=== PATIENT | female | born 1930 | race Caucasian/White ===

== ENCOUNTER 2017-02-03 11:00 | Outpatient (CLI) | payer BC | END 2017-02-03 11:01 | disposition home or self-care (01) | DX: N30.01 Acute cystitis with hematuria (principal) ==

== ENCOUNTER 2017-02-05 12:13 | Emergency (ER) | payer BC ==
[2017-02-05 12:27] VITALS: BP 158/67
[2017-02-05 12:43] LABS: BILIRUBIN,URINE NEGATIVE (NEGATIVE)
[2017-02-05 12:44] LABS: UA w/ MICROSCOPIC CHARGE YES
--- NOTE | 2017-02-05 12:51 | ED Physician Documentation ---
PD HPI FEMALE - Stated complaint Stated Complaint: FEMALE /BACK PX - Chief complaint Chief Complaint: UTI - History obtained from History obtained from: Patient, Family (daughter) - History of Present Illness Timing - onset: Other (About 3 days worth of urinary frequency and burning dysuria without new back pain (she has chronic back pain), nor does she have nausea, fevers, or chills. She said she saw her doctor for same a week ago, but I think she may be a little confused about that because there is a urine culture on the chart from 2 days ago that was just resulted this morning showing Proteus mirabilis which was resistant to tetracycline and nitrofurantoin. Of note she has multiple antibiotics allergies including all beta lactams.) Review of Systems Constitutional: denies: Fever, Chills Cardiac: denies: Chest pain / pressure, Palpitations Respiratory: denies: Dyspnea, Cough GI: denies: Abdominal Pain, Nausea, Vomiting : reports: Dysuria, Frequency, Hesitancy. denies: Hematuria PD PAST MEDICAL HISTORY - Past Medical History Neuro: Head injury GI: GERD, Hiatal hernia, Ulcerative colitis OIL SPREADER OPERATOR: None : None Psych: None Musculoskeletal: None - Past Surgical History Past Surgical History: Yes /OIL SPREADER OPERATOR: Hysterectomy - Present Medications Home Medications: Ambulatory Orders Medication Instructions Recorded Confirmed Ranitidine HCl [Zantac] 1 tab DAILY 10/26/14 02/05/17 Phenazopyridine HCl [Pyridium] 200 mg PO TID #6 tablet 02/05/17 Sulfamethoxazole/Trimethoprim 1 each PO BID 5 Days 02/05/17 [Sulfamethoxazole-Tmp Ds Tablet] - Allergies Allergies/Adverse Reactions: Allergies Allergy/AdvReac Type Severity Reaction Status Date / Time bacitracin Allergy Unknown Verified 02/05/17 12:28 [From Neosporin ([id number])] bacitracin zinc * Allergy Unknown Verified 02/05/17 12:28 [From Neosporin ([id number])] Cephalosporins Allergy Unknown Verified 02/05/17 12:28 naproxen [From Naprosyn] Allergy Unknown Verified 02/05/17 12:28 neomycin sulfate * Allergy Unknown Verified 02/05/17 12:28 [From Neosporin ([id number]-[id number])] Penicillins Allergy Unknown Verified 02/05/17 12:28 polymyxin B Allergy Unknown Verified 02/05/17 12:28 [From Neosporin ([id number])] shellfish derived Allergy Unknown Verified 02/05/17 12:28 beta-lactams Allergy Unknown Uncoded 02/05/17 12:28 chloretrimazole Allergy Unknown Uncoded 02/05/17 12:28 msg Allergy Unknown Uncoded 02/05/17 12:28 - Social History Does the pt smoke?: No Smoking Status: Never smoker Does the pt drink ETOH?: No Does the pt have substance abuse?: No - Immunizations Immunizations are current?: No Immunizations: TDAP >10years/unknown, Other immun not current PD ED PE NORMAL - Vitals Vital signs reviewed: Yes - General General: No acute distress, Well developed/nourished - Abdomen Abdomen: Normal bowel sounds, Soft, Non tender - Back Back: No CVA TTP, No spinal TTP - Extremities Extremities: No edema, No calf tenderness / cord - Neuro Neuro: Normal speech - Psych Psych: Normal mood, Normal affect Results - Vitals Vitals: Vital Signs - 24 hr 02/05/17 12:18 Temperature 37.1 C Heart Rate 61 Respiratory 20 Rate Blood Pressure 158/67 H O2 Saturation 97 Oxygen O2 Source Room air - Labs Labs: Laboratory Tests 02/05/17 12:38 Urine Color YELLOW Urine Clarity SL. CLOUDY Urine pH 7.0 Ur Specific [place] <=1.005 Urine Protein NEGATIVE Urine Glucose (UA) NEGATIVE Urine Ketones NEGATIVE Urine Occult Blood LARGE H Urine Nitrite NEGATIVE Urine Bilirubin NEGATIVE Urine Urobilinogen 0.2 (NORMAL) Ur Leukocyte Esterase MODERATE H Ur Microscopic Review INDICATED Urine Culture Comments Not Reportable Departure - Departure Disposition: 01 Home, Self Care Clinical Impression: Cystitis Condition: Good Record reviewed to determine appropriate education?: Yes Instructions: ED UTI Cystitis Female Prescriptions: Phenazopyridine HCl [Pyridium] 200 mg PO TID #6 tablet Sulfamethoxazole/Trimethoprim [Sulfamethoxazole-Tmp Ds Tablet] 1 each PO BID 5 Days Comments: Call your doctor to arrange a follow up appointment. Make the next available appointment. In the interim return anytime if worse or if new symptoms develop. Your blood pressure was elevated today on check in to the emergency department. This does not mean that you have hypertension, it is a common phenomenon to check into the emergency department and have elevated blood pressure. I recommend that you see your primary care physician within the week to have it rechecked when you're feeling better. As we discussed we will culture your urine, this results should be done in 48- 72 hours. If an antibiotic change is necessary we will call you. Return if worse in the meantime, especially if you develop flank pain or fevers or cannot keep down the medication.
[2017-02-05 12:53] LABS: WBC,URINE >25 /HPF (0-5)
[2017-02-05 12:54] LABS: UR CULTURE IF IND INDICATED
[2017-02-05] MEDS ORDERED: SULFAMETH/TRIMETH DS 800/160 MG TABLET PO ONE (13:00)
[2017-02-05] MEDS ORDERED: PHENAZOPYRIDINE 100 MG TABLET PO ONE (13:00)
[2017-02-05] MEDS: SULFAMETH/TRIMETH DS 800/160 MG TABLET PO STA (13:05)
[2017-02-05] MEDS: PHENAZOPYRIDINE 100 MG TABLET PO STA (13:05)
== END 2017-02-05 13:10 | disposition home or self-care (01) ==
LOC: ED 12:13
DX: N30.00 Acute cystitis without hematuria (principal); K21.9 Gastro-esophageal reflux disease without esophagitis; Z87.19 Personal history of other diseases of the digestive system; R03.0 Elevated blood-pressure reading, without diagnosis of hypertension
CPT/HCPCS: 81001; 81003; 87086; 99283

== ENCOUNTER 2017-02-16 11:47 | Emergency (ER) | payer BC ==
--- NOTE | 2017-02-16 12:47 | ED Physician Documentation ---
PD HPI FEMALE - Stated complaint Stated Complaint: FEMALE - Chief complaint Chief Complaint: UTI - History obtained from History obtained from: Patient - History of Present Illness Timing - onset: How many days ago (few days of worsening dysuria and vaginal "burning" feeling. Has had the dysuria about 3 weeks ago and had UTI with culture showing Proteus. She says symptoms improved and then seen by PMD days later or so (she does not remember exact date) and had pelvic with Dx yeast vaginitis, Rx with single dose diflucan. Patient says did not really improve and has worsened the past few days.) Timing - details: Gradual onset, Still present Associated symptoms: Vaginal pain, Dysuria. No: Abdominal pain, Back pain, Vaginal discharge, Genital sore/lesion Contributing factors: No: Exposed to STD Recently seen: Clinic, Emergency Dept (see above) Review of Systems Constitutional: denies: Fever, Chills Throat: denies: Sore throat Cardiac: denies: Chest pain / pressure, Palpitations, Calf pain Respiratory: denies: Dyspnea, Cough, Wheezing GI: denies: Nausea, Vomiting, Diarrhea : reports: Dysuria, Frequency. denies: Discharge Skin: denies: Rash Neurologic: reports: Generalized weakness. denies: Focal weakness, Numbness PD PAST MEDICAL HISTORY - Past Medical History Neuro: Head injury GI: GERD, Hiatal hernia, Ulcerative colitis STOPPER SETTER: None : None Psych: None Musculoskeletal: None - Past Surgical History Past Surgical History: Yes /STOPPER SETTER: Hysterectomy - Present Medications Home Medications: Ambulatory Orders Medication Instructions Recorded Confirmed Ranitidine HCl [Zantac] 1 tab DAILY 10/26/14 02/05/17 Phenazopyridine HCl [Pyridium] 200 mg PO TID #6 tablet 02/05/17 metroNIDAZOLE [Flagyl] 250 mg PO TID #20 tablet 02/16/17 - Allergies Allergies/Adverse Reactions: Allergies Allergy/AdvReac Type Severity Reaction Status Date / Time bacitracin Allergy Unknown Verified 02/05/17 12:28 [From Neosporin ([id number])] bacitracin zinc * Allergy Unknown Verified 02/05/17 12:28 [From Neosporin ([id number]-[id number])] Cephalosporins Allergy Unknown Verified 02/05/17 12:28 naproxen [From Naprosyn] Allergy Unknown Verified 02/05/17 12:28 neomycin sulfate * Allergy Unknown Verified 02/05/17 12:28 [From Neosporin ([id number])] Penicillins Allergy Unknown Verified 02/05/17 12:28 polymyxin B Allergy Unknown Verified 02/05/17 12:28 [From Neosporin ([id number]-[id number]-[id number])] shellfish derived Allergy Unknown Verified 02/05/17 12:28 beta-lactams Allergy Unknown Uncoded 02/05/17 12:28 chloretrimazole Allergy Unknown Uncoded 02/05/17 12:28 msg Allergy Unknown Uncoded 02/05/17 12:28 - Social History Does the pt smoke?: No Smoking Status: Never smoker Does the pt drink ETOH?: No Does the pt have substance abuse?: No - Immunizations Immunizations are current?: No Immunizations: TDAP >10years/unknown, Other immun not current PD ED PE NORMAL - Vitals Vital signs reviewed: Yes - General General: Alert and oriented X 3, No acute distress, Well developed/nourished - Cardiac Cardiac: RRR, No murmur - Respiratory Respiratory: Clear bilaterally - Abdomen Abdomen: Normal bowel sounds, Soft, Non tender, Non distended, No organomegaly - Female Female : Job Site Supervisor 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 Does not appear dry. External genitalia normal. ) - Back Back: No CVA TTP - Derm Derm: Normal color, Warm and dry Results - Vitals Vitals: Vital Signs - 24 hr 02/16/17 02/16/17 02/16/17 11:49 15:30 15:34 Temperature 36.9 C 36.4 C L 36.6 C Heart Rate 84 86 81 Respiratory 16 12 16 Rate Blood Pressure 158/71 H 138/64 H 129/73 O2 Saturation 97 97 98 Oxygen O2 Source Room air - Labs Labs: Microbiology 02/16/17 15:04 Wet Prep - Final Vaginal Laboratory Tests 02/16/17 12:55 Urine Color YELLOW Urine Clarity CLEAR Urine pH 5.5 Ur Specific [place] 1.025 Urine Protein NEGATIVE Urine Glucose (UA) NEGATIVE Urine Ketones NEGATIVE Urine Occult Blood SMALL H Urine Nitrite NEGATIVE Urine Bilirubin NEGATIVE Urine Urobilinogen 0.2 (NORMAL) Ur Leukocyte Esterase NEGATIVE Urine RBC 0-5 Urine WBC 4-5 Ur Squamous Epith Cells RARE Squamous Urine Bacteria Few Ur Microscopic Review INDICATED Urine Culture Comments NOT INDICATED PD MEDICAL DECISION MAKING - ED course Complexity details: considered differential (was having vaginal/urethral symptoms and had been treated for UTI recently and then diflucan for possible yeast infection (dx by pelvic exam by PMD). However, no labs done per se. Still with symptoms. Pelvic showing mild discharge and wet prep has some clue cells.) , d/w patient Departure - Departure Disposition: 01 Home, Self Care Clinical Impression: Bacterial vaginitis Condition: Stable Record reviewed to determine appropriate education?: Yes Instructions: ED Vaginosis Bacterial Follow-Up: Jaleel Brown MD [Primary Care Provider] - Prescriptions: metroNIDAZOLE [Flagyl] 250 mg PO TID #20 tablet Comments: There is signs of a vaginal infection on the swab test we did, but it appears bacterial and not yeast. Take metronidazole as directed for a week. Drink lots of fluids. Follow up PMD in about 10 days. Discharge Date/Time: 02/16/17 15:34
[2017-02-16 13:06] LABS: BILIRUBIN,URINE NEGATIVE (NEGATIVE); PH,URINE 5.5 PH (5.0-7.5)
[2017-02-16 13:08] LABS: UA w/ MICROSCOPIC CHARGE YES
[2017-02-16 13:20] LABS: UR CULTURE IF IND NOT INDICATED
[2017-02-16] MEDS ORDERED: metroNIDAZOLE 250 MG TABLET PO ONE (15:27)
[2017-02-16] MEDS: metroNIDAZOLE 250 MG TABLET PO STA (15:29)
[2017-02-16 15:35] VITALS: BP 129/73
== END 2017-02-16 15:34 | disposition home or self-care (01) ==
LOC: ED 11:47
DX: N76.0 Acute vaginitis (principal); B96.89 Other specified bacterial agents as the cause of diseases classified elsewhere
CPT/HCPCS: 81001; 81003; 87086; 87210; 99283

== ENCOUNTER 2017-03-04 13:07 | Emergency (ER) | payer BC ==
[2017-03-04 13:13] VITALS: BP 192/90
[2017-03-04 13:45] LABS: BILIRUBIN,URINE NEGATIVE (NEGATIVE); PH,URINE 6.5 PH (5.0-7.5)
[2017-03-04 13:46] LABS: UA CHARGE (STRIP ONLY) YES; UR CULTURE IF IND NOT INDICATED
[2017-03-04] MEDS ORDERED: LIDOCAINE JELLY 2% 5 ML TUBE TOP ONE (14:15)
--- NOTE | 2017-03-04 14:36 | ED Physician Documentation ---
History of Present Illness - Stated complaint Stated Complaint: FEMALE - Chief complaint Chief Complaint: Abd Pain - Additonal information Additional information: 86 f to ER with vaginal pain per pt she has had pain for a week since a speculum exam at PMD per EMR she has been seen by PMD and txed for UTI and then yeast and then came to the ER and was treated for BV no fever or abd pain or dysuria Review of Systems Constitutional: denies: Fever GI: denies: Abdominal Pain : reports: Other (vag pain). 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: None : None Psych: None Musculoskeletal: None - Past Surgical History Past Surgical History: Yes /FRICTION SAW OPERATOR: Hysterectomy - Allergies Allergies/Adverse Reactions: Allergies Allergy/AdvReac Type Severity Reaction Status Date / Time bacitracin Allergy Unknown Verified 03/04/17 13:13 [From Neosporin ([id number])] bacitracin zinc * Allergy Unknown Verified 03/04/17 13:13 [From Neosporin ([id number]-ife-[id number])] Cephalosporins Allergy Unknown Verified 03/04/17 13:13 naproxen [From Naprosyn] Allergy Unknown Verified 03/04/17 13:13 neomycin sulfate * Allergy Unknown Verified 03/04/17 13:13 [From Neosporin ([id number]-[id number])] Penicillins Allergy Unknown Verified 03/04/17 13:13 polymyxin B Allergy Unknown Verified 03/04/17 13:13 [From Neosporin ([id number])] shellfish derived Allergy Unknown Verified 03/04/17 13:13 beta-lactams Allergy Unknown Uncoded 03/04/17 13:13 chloretrimazole Allergy Unknown Uncoded 03/04/17 13:13 msg Allergy Unknown Uncoded 03/04/17 13:13 - Social History Does the pt smoke?: No Smoking Status: Never smoker Does the pt drink ETOH?: No Does the pt have substance abuse?: No - Immunizations Immunizations are current?: No Immunizations: TDAP >10years/unknown, Other immun not current PD ED PE NORMAL - Vitals Vital signs reviewed: Yes - Cardiac Cardiac: RRR - Respiratory Respiratory: No respiratory distress, Clear bilaterally - Abdomen Abdomen: Soft, Non tender - Female Female : Gandy Dancer present (Rosina), Other (erythema to vaginal mucosa, no dc , no bleeding, no tearing or bruising, no sattelite lesions, no vesicles, small urethral prolapse (pt advised)) Results - Vitals Vitals: Vital Signs - 24 hr 03/04/17 13:10 Temperature 36.6 C Heart Rate 97 Respiratory 18 Rate Blood Pressure 192/90 H O2 Saturation 97 Oxygen O2 Source Room air - Labs Labs: Laboratory Tests 03/04/17 13:35 Urine Color YELLOW Urine Clarity CLEAR Urine pH 6.5 Ur Specific [place] 1.020 Urine Protein NEGATIVE Urine Glucose (UA) NEGATIVE Urine Ketones NEGATIVE Urine Occult Blood NEGATIVE Urine Nitrite NEGATIVE Urine Bilirubin NEGATIVE Urine Urobilinogen 0.2 (NORMAL) Ur Leukocyte Esterase NEGATIVE Ur Microscopic Review NOT INDICATED Urine Culture Comments NOT INDICATED PD MEDICAL DECISION MAKING - ED course ED course: appears to have vag mucosa inflammation already been txed with ab x 2 and diflucan will just tx symptomatically and refer to FRICTION SAW OPERATOR if not better Departure - Departure Disposition: 01 Home, Self Care Clinical Impression: Vaginal irritation Condition: Good Follow-Up: Ethan Smith MD [Provider Admit Priv/Credential] - (for further evaluation if not better in a week) Comments: The vaginal mucosa looks red and inflamed. Per your medical record you have already been treated for a UTI, yeast infection , and bacterial vaginitis So I do not think more antibiotics or yeast medications are needed. You can apply a small amount of the lidocaine gel left over from todays visit every 6 hours as needed. Just clean with warm water and avoid trying different soaps and lotions etc. Follow up with the FRICTION SAW OPERATOR specialist if not better Also please follow up with your PMD to recheck your blood pressure
== END 2017-03-04 14:42 | disposition home or self-care (01) ==
LOC: ED 13:07
DX: N89.8 Other specified noninflammatory disorders of vagina (principal); K21.9 Gastro-esophageal reflux disease without esophagitis
CPT/HCPCS: 81003; 99283; J3490; 81001; 87086

== ENCOUNTER 2017-08-12 16:59 | Outpatient (CLI) | payer BC ==
[2017-08-12 17:19] LABS: BASOPHILS # (AUTO) 0.1 10^3/uL (0.0-0.1); BASOPHILS % (AUTO) 1.1 %; EOSINOPHILS # (AUTO) 0.1 10^3/uL (0.0-0.7); EOSINOPHILS % (AUTO) 0.7 %; HCT - HEMATOCRIT 42.8 % (37.0-47.0); HGB - HEMOGLOBIN 14.4 g/dL (12.0-16.0); LYMPHOCYTES # (AUTO) 3.6 10^3/uL (1.5-3.5); LYMPHOCYTES % (AUTO) 28.5 %; MEAN CORPUSCULAR HEMOGLOBIN 31.1 pg (27.0-31.0); MEAN CORPUSCULAR HGB CONC 33.5 g/dL (32.0-36.0); MEAN CORPUSCULAR VOLUME 92.7 fL (81.0-99.0); MONOCYTES # (AUTO) 0.8 10^3/uL (0.0-1.0); MONOCYTES % (AUTO) 6.2 %; NEUTROPHILS # (AUTO) 7.9 10^3/uL (1.5-6.6); NEUTROPHILS % (AUTO) 63.5 %; NUCLEATED RED BLOOD CELLS AUTO 0.1 /100WBC; RED BLOOD COUNT 4.62 10^6/uL (4.20-5.40); RED CELL DISTRIBUTION WIDTH 12.5 % (12.0-15.0); UNCORRECTED WHITE BLOOD COUNT 12.5 x10^3/uL; WHITE BLOOD COUNT 12.5 x10^3/uL (4.8-10.8)
[2017-08-12 17:48] LABS: ALBUMIN/GLOBULIN RATIO 1.5 (1.0-2.2); BILIRUBIN,TOTAL 0.3 mg/dL (0.2-1.0); CALCIUM 9.6 mg/dL (8.5-10.3); CREATININE 0.7 mg/dL (0.4-1.0); POTASSIUM 4.1 mmol/L (3.5-5.0); TOTAL PROTEIN 7.9 g/dL (6.7-8.2)
[2017-08-12 18:22] LABS: THYROID STIMULATING HORMONE 2.6 uIU/mL (0.34-5.60)
[2017-08-13 10:07] LABS: TEST RESULT REPORT
== END 2017-08-12 17:00 | disposition home or self-care (01) ==
LOC: LAB 16:59
PROVIDERS: ATTEND Internal Medicine
DX: R41.89 Other symptoms and signs involving cognitive functions and awareness (principal)
CPT/HCPCS: 36415; 80053; 81599; 82607; 84443; 85025; 86592

== ENCOUNTER 2018-05-24 18:50 | Emergency (ER) | payer BC ==
--- NOTE | 2018-05-24 19:31 | ED Physician Documentation ---
PD HPI WOUND RECHECK - Stated complaint Stated Complaint: R ANKLE PX - Chief complaint Chief Complaint: Ext Problem - Histroy obtained from History obtained from: Patient, Family - History of Present Illness Location: Other (R anterior ankle) Timing - onset: How many months ago (1) Pain level max: 1 Pain level now: 1 Associated symptoms: No: Fever, Redness, Swelling, Drainage Recently seen: Not recently seen - Additional information Additional information: scraped her R ankle on patio furniture 1 month ago. concerned about possible infection. Review of Systems Ten Systems: 10 systems reviewed and negative Constitutional: denies: Fever, Chills Ears: denies: Ear pain Nose: denies: Rhinorrhea / runny nose, Congestion Throat: denies: Sore throat Cardiac: denies: Chest pain / pressure Musculoskeletal: denies: Neck pain, Back pain Neurologic: denies: Headache PD PAST MEDICAL HISTORY - Past Medical History Past Medical History: Yes GI: GERD, Hiatal hernia, Ulcerative colitis INFORMATION ASSURANCE OFFICER: None : None Psych: None Musculoskeletal: None - Past Surgical History Past Surgical History: Yes /INFORMATION ASSURANCE OFFICER: Hysterectomy - Present Medications Home Medications: Ambulatory Orders Medication Instructions Recorded Confirmed No Known Home Medications [No 05/24/18 05/24/18 Known Home Medications] - Allergies Allergies/Adverse Reactions: Allergies Allergy/AdvReac Type Severity Reaction Status Date / Time bacitracin Allergy Unknown Verified 05/24/18 19:02 [From Neosporin ([id number]-[id number])] bacitracin zinc * Allergy Unknown Verified 05/24/18 19:02 [From Neosporin ([id number]-[id number])] Cephalosporins Allergy Unknown Verified 05/24/18 19:02 naproxen [From Naprosyn] Allergy Unknown Verified 05/24/18 19:02 neomycin sulfate * Allergy Unknown Verified 05/24/18 19:02 [From Neosporin ([id number]-kfd-cdarg)] Penicillins Allergy Unknown Verified 05/24/18 19:02 polymyxin B Allergy Unknown Verified 05/24/18 19:02 [From Neosporin ([id number])] shellfish derived Allergy Unknown Verified 05/24/18 19:02 beta-lactams Allergy Unknown Uncoded 03/04/17 13:13 chloretrimazole Allergy Unknown Uncoded 03/04/17 13:13 msg Allergy Unknown Uncoded 03/04/17 13:13 - Living Situation Living Situation: reports: With family Living Arrangement: reports: At home - Social History Does the pt smoke?: No Smoking Status: Never smoker Does the pt drink ETOH?: No Does the pt have substance abuse?: No - Immunizations Immunizations are current?: No Immunizations: TDAP >10years/unknown, Other immun not current PD ED PE NORMAL - Vitals Vital signs reviewed: Yes - General General: Alert and oriented X 3, No acute distress - Derm Derm: Warm and dry - Extremities Extremities: Other (R ankle - 0.5cm healing wound. granulation tissue present. NVI. no drainage. no surrounding erythema. ) - Neuro Neuro: Alert and oriented X 3 - Psych Psych: Normal mood Results - Vitals Vitals: Vital Signs - 24 hr 05/24/18 05/24/18 18:58 19:34 Temperature 36 C L 36.7 C Heart Rate 100 76 Respiratory 18 17 Rate Blood Pressure 149/83 H 126/78 O2 Saturation 95 99 Oxygen O2 Source Room air PD MEDICAL DECISION MAKING - ED course Complexity details: considered differential, d/w patient ED course: Patient is an 88-year-old female who presents to the emergency department with a healing wound to the anterior aspect of the right ankle. No evidence of infection. Will continue supportive care and follow-up closely with her doctor. Patient counseled regarding signs and symptoms for which I believe and urgent re-evaluation would be necessary. Patient with good understanding of and agreement to plan and is comfortable going home at this time This document was made in part using voice recognition software. While efforts are made to proofread this document, sound alike and grammatical errors may occur. - Sepsis Event Vital Signs: Vital Signs - 24 hr 05/24/18 05/24/18 18:58 19:34 Temperature 36 C L 36.7 C Heart Rate 100 76 Respiratory 18 17 Rate Blood Pressure 149/83 H 126/78 O2 Saturation 95 99 Oxygen O2 Source Room air Departure - Departure Disposition: 01 Home, Self Care Clinical Impression: Visit for wound check Condition: Good Instructions: ED Wound Care Follow-Up: Jaleel Brown MD [Primary Care Provider] - Within 1 week (for wound recheck) Comments: There are no signs of infection tonight. Your wound appears to be healing well. Return if you worsen. Discharge Date/Time: 05/24/18 19:34
[2018-05-24 19:36] VITALS: BP 126/78
== END 2018-05-24 19:34 | disposition home or self-care (01) ==
LOC: ED 18:50
DX: M25.571 Pain in right ankle and joints of right foot (principal); S90.911D Unspecified superficial injury of right ankle, subsequent encounter; W19.XXXD Unspecified fall, subsequent encounter
CPT/HCPCS: 99282; 99283

== ENCOUNTER 2019-04-05 09:46 | Emergency (ER) | payer BC ==
[2019-04-05 10:47] LABS: BILIRUBIN,URINE NEGATIVE (NEGATIVE); GLUCOSE, URINE (UA) NEGATIVE (NEGATIVE); KETONES,URINE (UA) NEGATIVE (NEGATIVE); LEUKOCYTE ESTERASE, URINE LARGE (NEGATIVE); NITRITE,URINE POSITIVE (NEGATIVE); OCCULT BLOOD,URINE LARGE (NEGATIVE); PH,URINE 6.5 PH (5.0-7.5); PROTEIN,URINE TRACE mg/dL (NEGATIVE); UROBILINOGEN,URINE 0.2 (NORMAL) E.U./dL (NORMAL)
[2019-04-05 10:51] LABS: CLARITY,URINE CLOUDY (CLEAR)
[2019-04-05 11:04] LABS: BACTERIA,URINE Few /HPF (None Seen); RBC,URINE 0-5 /HPF (0-5); SQUAMOUS EPITHELIAL CELL,UR RARE Squamous (<= Few); WBC CLUMPS,URINE PRESENT
[2019-04-05] MEDS ORDERED: SULFAMETH/TRIMETH DS 800/160 MG TABLET PO STA (12:00)
[2019-04-05] MEDS ORDERED: PHENAZOPYRIDINE 100 MG TABLET PO STA (12:00)
--- NOTE | 2019-04-05 12:03 | ED Physician Documentation ---
PD HPI FEMALE - Stated complaint Stated Complaint: FEMALE - Chief complaint Chief Complaint: UTI - History obtained from History obtained from: Patient - History of Present Illness Timing - onset: Yesterday Timing - duration: Days (1) Timing - details: Abrupt onset, Still present Associated symptoms: Dysuria, Urinary frequency. No: Fever Similar symptoms before: Diagnosis (UTIs - several in past couple of years.) Review of Systems Constitutional: denies: Fever, Chills Nose: denies: Rhinorrhea / runny nose, Congestion Throat: denies: Sore throat Respiratory: denies: Cough : reports: Dysuria, Frequency Musculoskeletal: denies: Back pain PD PAST MEDICAL HISTORY - Past Medical History Cardiovascular: None Respiratory: None GI: GERD, Hiatal hernia, Ulcerative colitis PROCESS SAFETY SPECIALIST: None : None Psych: None Musculoskeletal: None - Past Surgical History Past Surgical History: Yes /PROCESS SAFETY SPECIALIST: Hysterectomy - Present Medications Home Medications: Ambulatory Orders Medication Instructions Recorded Confirmed Phenazopyridine HCl [Pyridium] 100 mg PO TID PRN #30 tablet 04/05/19 Sulfamethox/Trimeth 800/160 1 each PO BID #14 tablet 04/05/19 [Bactrim Ds 800/160] - Allergies Allergies/Adverse Reactions: Allergies Allergy/AdvReac Type Severity Reaction Status Date / Time bacitracin Allergy Unknown Verified 05/24/18 19:02 [From Neosporin ([id number]-[id number])] bacitracin zinc * Allergy Unknown Verified 05/24/18 19:02 [From Neosporin ([id number]-[id number])] Cephalosporins Allergy Unknown Verified 05/24/18 19:02 naproxen [From Naprosyn] Allergy Unknown Verified 05/24/18 19:02 neomycin sulfate * Allergy Unknown Verified 05/24/18 19:02 [From Neosporin ([id number]-[id number])] Penicillins Allergy Unknown Verified 05/24/18 19:02 polymyxin B Allergy Unknown Verified 05/24/18 19:02 [From Neosporin ([id number])] shellfish derived Allergy Unknown Verified 05/24/18 19:02 beta-lactams Allergy Unknown Uncoded 03/04/17 13:13 chloretrimazole Allergy Unknown Uncoded 03/04/17 13:13 msg Allergy Unknown Uncoded 03/04/17 13:13 - Social History Does the pt smoke?: No Smoking Status: Never smoker Does the pt drink ETOH?: No Does the pt have substance abuse?: No - Immunizations Immunizations are current?: No Immunizations: TDAP >10years/unknown, Other immun not current PD ED PE NORMAL - Vitals Vital signs reviewed: Yes - General General: Alert and oriented X 3, No acute distress, Well developed/nourished - Abdomen Abdomen: Soft, Non tender - Female Female : Deferred - Back Back: No CVA TTP - Derm Derm: Normal color, Warm and dry Results - Vitals Vitals: Vital Signs - 24 hr 04/05/19 04/05/19 09:51 12:16 Temperature 36.7 C Heart Rate 94 77 Respiratory 18 18 Rate Blood Pressure 157/78 H 160/71 H O2 Saturation 100 96 Oxygen O2 Source Room air - Labs Labs: Laboratory Tests 04/05/19 10:45 Urine Color YELLOW Urine Clarity CLOUDY Urine pH 6.5 Ur Specific [place] <=1.005 Urine Protein TRACE Urine Glucose (UA) NEGATIVE Urine Ketones NEGATIVE Urine Occult Blood LARGE H Urine Nitrite POSITIVE H Urine Bilirubin NEGATIVE Urine Urobilinogen 0.2 (NORMAL) Ur Leukocyte Esterase LARGE H Urine RBC 0-5 Urine WBC >25 H Urine WBC Clumps PRESENT Ur Squamous Epith Cells RARE Squamous Urine Bacteria Few Ur Microscopic Review INDICATED Urine Culture Comments INDICATED PD MEDICAL DECISION MAKING - ED course Complexity details: reviewed results, considered differential, d/w patient Departure - Departure Disposition: 01 Home, Self Care Clinical Impression: Dysuria Urinary tract infection Qualifiers: Urinary tract infection type: acute cystitis Hematuria presence: without hematuria Qualified Code(s): N30.00 - Acute cystitis without hematuria Condition: Stable Record reviewed to determine appropriate education?: Yes Instructions: ED UTI Cystitis Female Prescriptions: Phenazopyridine HCl [Pyridium] 100 mg PO TID PRN #30 tablet PRN Reason: Abdominal Pain Sulfamethox/Trimeth 800/160 [Bactrim Ds 800/160] 1 each PO BID #14 tablet Comments: Stay well-hydrated. Phenazopyridine 3 or 4 times a day as needed for urinary discomfort. Your urine test shows a signs of an infection we will treated with Bactrim antibiotic twice daily for a week. Recheck if not improving over the next few days. Discharge Date/Time: 04/05/19 12:20
[2019-04-05 12:16] VITALS: BP 160/71
== END 2019-04-05 12:20 | disposition home or self-care (01) ==
LOC: ED 09:46
DX: N30.00 Acute cystitis without hematuria (principal)
CPT/HCPCS: 81001; 87077; 87086; 87181; 99283; A9270; 81003

== ENCOUNTER 2019-04-16 01:23 | Emergency (ER) | payer BC ==
[2019-04-16 01:44] LABS: BILIRUBIN,URINE NEGATIVE (NEGATIVE); LEUKOCYTE ESTERASE, URINE TRACE (NEGATIVE); OCCULT BLOOD,URINE NEGATIVE (NEGATIVE)
[2019-04-16 02:03] LABS: CLARITY,URINE SL. CLOUDY (CLEAR)
[2019-04-16 02:06] LABS: BACTERIA,URINE Rare /HPF (None Seen); RBC,URINE None Seen /HPF (0-5); SQUAMOUS EPITHELIAL CELL,UR RARE Squamous (<= Few)
[2019-04-16 02:10] LABS: CRYSTALS,URINE 6-10 Calcium Oxalate /LPF
--- NOTE | 2019-04-16 02:22 | ED Physician Documentation ---
PD HPI FEMALE - Stated complaint Stated Complaint: FEM /PAIN - Chief complaint Chief Complaint: General - History obtained from History obtained from: Patient - History of Present Illness Timing - onset: How many days ago (3) Timing - duration: Days (3) Timing - details: Gradual onset, Still present Associated symptoms: Vaginal pain, Dysuria Similar symptoms before: Diagnosis (UTI, bacterial vaginitis) Recently seen: Emergency Dept - Additional information Additional information: 88 y/o female Who was recently seen in the emergency department with urinary tract infection and placed on Septra had organisms grow that were sensitive to the Septra. She states her symptoms improved and then over the past 3 days she has had vaginal burning. She states the burning is severe and she has been taking some Azo. She comes into the emergency department this evening appearing confused and only later to be learned that she has advanced dementia and she has driven herself to the hospital. Review of Systems Constitutional: denies: Fever Eyes: denies: Decreased vision Ears: denies: Ear pain, Drainage/discharge Nose: denies: Congestion Throat: denies: Sore throat Cardiac: denies: Chest pain / pressure, Palpitations Respiratory: denies: Dyspnea, Cough GI: denies: Nausea, Vomiting : reports: Dysuria, Other (vaginal burning) Skin: denies: Rash Musculoskeletal: denies: Neck pain, Back pain, Extremity pain Neurologic: denies: Generalized weakness, Focal weakness, Numbness PD PAST MEDICAL HISTORY - Past Medical History Cardiovascular: None Respiratory: None GI: GERD, Hiatal hernia, Ulcerative colitis HEEL SHAVER: None : None Psych: None Musculoskeletal: None - Past Surgical History Past Surgical History: Yes /HEEL SHAVER: Hysterectomy - Present Medications Home Medications: Ambulatory Orders Medication Instructions Recorded Confirmed Phenazopyridine HCl [Pyridium] 100 mg PO TID PRN #30 tablet 04/05/19 Sulfamethox/Trimeth 800/160 1 each PO BID #14 tablet 04/05/19 [Bactrim Ds 800/160] Metronidazole 500 mg PO BID #14 tablet 04/16/19 - Allergies Allergies/Adverse Reactions: Allergies Allergy/AdvReac Type Severity Reaction Status Date / Time bacitracin Allergy Unknown Verified 04/16/19 01:31 [From Neosporin ([id number])] bacitracin zinc * Allergy Unknown Verified 04/16/19 01:31 [From Neosporin ([id number])] Cephalosporins Allergy Unknown Verified 04/16/19 01:31 naproxen [From Naprosyn] Allergy Unknown Verified 04/16/19 01:31 neomycin sulfate * Allergy Unknown Verified 04/16/19 01:31 [From Neosporin ([id number])] Penicillins Allergy Unknown Verified 04/16/19 01:31 polymyxin B Allergy Unknown Verified 04/16/19 01:31 [From Neosporin ([id number])] shellfish derived Allergy Unknown Verified 04/16/19 01:31 beta-lactams Allergy Unknown Uncoded 04/16/19 01:31 chloretrimazole Allergy Unknown Uncoded 04/16/19 01:31 msg Allergy Unknown Uncoded 04/16/19 01:31 - Social History Does the pt smoke?: No Smoking Status: Never smoker Does the pt drink ETOH?: No Does the pt have substance abuse?: No - Immunizations Immunizations are current?: No Immunizations: TDAP >10years/unknown, Other immun not current PD ED PE NORMAL - Vitals Vital signs reviewed: Yes (hypertensive and hypoxic (falsely)) - General General: Well developed/nourished, Other (The patient is crying in pain ) - HEENT HEENT: Atraumatic, PERRL, EOMI - Neck Neck: Supple, no meningeal sign - Cardiac Cardiac: RRR, No murmur - Respiratory Respiratory: No respiratory distress, Clear bilaterally - Abdomen Abdomen: Soft, Non tender - Female Female : Press Supervisor present (Rebecca), Other (white discharge is present and the vulva appear yellow stained from the azo. ) - Back Back: No CVA TTP, No spinal TTP - Derm Derm: Normal color, Warm and dry, No rash - Extremities Extremities: No deformity, No edema, No calf tenderness / cord - Neuro Neuro: collections rep 2-12 intact, No motor deficit, No sensory deficit, Normal speech Eye Opening: Spontaneous Motor: Obeys Commands Verbal: Confused GCS Score: 14 - Psych Psych: Normal mood, Normal affect Results - Vitals Vitals: Vital Signs - 24 hr 04/16/19 04/16/19 04/16/19 01:28 01:54 03:28 Temperature 36.8 C Heart Rate 98 84 95 Respiratory 22 24 Rate Blood Pressure 140/77 H 152/74 H O2 Saturation 90 L 91 L 90 L 04/16/19 04/16/19 04/16/19 03:35 04:30 05:45 Temperature Heart Rate 79 80 Respiratory 17 17 17 Rate Blood Pressure 146/64 H 162/74 H O2 Saturation 92 89 L Oxygen O2 Source Room air Oxygen Flow Rate 2 - Labs Labs: Microbiology 04/16/19 04:00 Wet Prep - Final Genital - Vaginal 04/16/19 04:00 SUSHANT Preparation - Final Fluid - Vaginal Laboratory Tests 04/16/19 04/16/19 04/16/19 01:38 03:05 03:05 WBC 10.2 RBC 3.33 L Hgb 10.8 L Hct 32.3 L MCV 97.0 MCH 32.4 H MCHC 33.4 RDW 14.6 Plt Count 384 MPV 9.0 Neut # (Auto) Not Reportable Lymph # (Auto) Not Reportable Woodson # (Auto) Not Reportable Eos # (Auto) Not Reportable Baso # (Auto) Not Reportable Absolute Nucleated RBC Not Reportable Total Counted 100 Band Neuts % (Manual) 3 Abnorm Lymph % (Manual) 0 Nucleated RBC % Not Reportable Neutrophils # (Manual) 7.2 H Lymphocytes # (Manual) 2.2 Monocytes # (Manual) 0.2 Eosinophils # (Manual) 0.5 Basophils # (Manual) 0.0 Differential Comment MANUAL DIFFERENTIAL Platelet Estimate NORMAL (130-450,000) RBC Morph Micro Appear NORMAL APPEARANCE Bld Gas Analysis Time Sample Site ABG pH ABG pCO2 ABG pO2 ABG HCO3 ABG Total CO2 ABG O2 Saturation ABG Base Excess Edy Test O2 Delivery Device FiO2 Sodium 140 Potassium 4.1 Chloride 105 Carbon Dioxide 21 Anion Gap 14.0 H BUN 37 H Creatinine 1.0 Estimated GFR (MDRD) 53 L Glucose 115 H Calcium 10.0 Total Bilirubin 1.6 H AST 32 ALT 27 Alkaline Phosphatase 60 Troponin I Total Protein 7.0 Albumin 4.4 Globulin 2.6 Albumin/Globulin Ratio 1.7 Lipase 76 H Urine Color DK. ORANGE Urine Clarity SL. CLOUDY Urine pH 5.0 Ur Specific [place] <=1.005 Urine Protein Urine Glucose (UA) Urine Ketones Urine Occult Blood NEGATIVE Urine Nitrite Urine Bilirubin NEGATIVE Urine Urobilinogen Ur Leukocyte Esterase TRACE H Urine RBC None Seen Urine WBC 4-5 Ur Squamous Epith Cells RARE Squamous Urine Crystals 6-10 Calcium Oxalate Urine Bacteria Rare Ur Microscopic Review INDICATED Urine Culture Comments INDICATED 04/16/19 04/16/19 03:05 05:35 WBC RBC Hgb Hct MCV MCH MCHC RDW Plt Count MPV Neut # (Auto) Lymph # (Auto) Woodson # (Auto) Eos # (Auto) Baso # (Auto) Absolute Nucleated RBC Total Counted Band Neuts % (Manual) Abnorm Lymph % (Manual) Nucleated RBC % Neutrophils # (Manual) Lymphocytes # (Manual) Monocytes # (Manual) Eosinophils # (Manual) Basophils # (Manual) Differential Comment Platelet Estimate RBC Morph Micro Appear Bld Gas Analysis Time 0451 Sample Site LEFT RADIAL ABG pH 7.53 H ABG pCO2 26 L ABG pO2 133 H ABG HCO3 20.9 L ABG Total CO2 21.7 ABG O2 Saturation 99 H ABG Base Excess -1.0 Edy Test POSITIVE O2 Delivery Device NASAL CANNULA FiO2 5.00 Sodium Potassium Chloride Carbon Dioxide Anion Gap BUN Creatinine Estimated GFR (MDRD) Glucose Calcium Total Bilirubin AST ALT Alkaline Phosphatase Troponin I < 0.04 Total Protein Albumin Globulin Albumin/Globulin Ratio Lipase Urine Color Urine Clarity Urine pH Ur Specific [place] Urine Protein Urine Glucose (UA) Urine Ketones Urine Occult Blood Urine Nitrite Urine Bilirubin Urine Urobilinogen Ur Leukocyte Esterase Urine RBC Urine WBC Ur Squamous Epith Cells Urine Crystals Urine Bacteria Ur Microscopic Review Urine Culture Comments PD MEDICAL DECISION MAKING - ED course Complexity details: reviewed old records, reviewed results, re-evaluated patient, considered differential, d/w patient ED course: 88-year-old female with a recent urinary tract infection is coming to the emergency department with a chief complaint of vaginal burning. She is driven herself to the emergency department in the middle of the night for evaluation. She comes into the emergency department she appears to be in some distress with the amount of burning she is having she appears to have overdosed on Pyridium. She has had enough Pyridium that her oxygen saturation appears low and despite being placed on oxygen it does not really change. Her arterial blood gas shows a met hemoglobin of 7%. This is not require any specific treatment other than stopping the Azo. The patient is examined a specimen is sent to the laboratory and it appears she has have some bacterial vaginosis. In review of her record this is similar to her previous presentation 2 years ago. She is administered metronidazole here in the emergency department. Departure - Departure Disposition: 01 Home, Self Care Clinical Impression: Bacterial vaginitis, Methemoglobinemia Condition: Stable Instructions: ED Vaginosis Bacterial Follow-Up: Berta Alatorre ARNP, C[employer]UT[employer] ARCHITECT-C [Primary Care Provider] - [facility] [Provider Group] Prescriptions: Metronidazole 500 mg PO BID #14 tablet Comments: Today it appears you have taken too much Azo and the recommendation is to discontinue the use of the Azo. The abnormalities we have seen in your oxygen saturation will resolve. Discharge Date/Time: 04/16/19 06:00
[2019-04-16 03:29] LABS: BASOPHILS % (AUTO) 0.3 %; EOSINOPHILS % (AUTO) 1.8 %; HGB - HEMOGLOBIN 10.8 g/dL (12.0-16.0); MEAN CORPUSCULAR HEMOGLOBIN 32.4 pg (27.0-31.0); MEAN CORPUSCULAR HGB CONC 33.4 g/dL (32.0-36.0); MONOCYTES % (AUTO) 6.6 %; NEUTROPHILS % (AUTO) 61.7 %; PLT - PLATELET COUNT 384 10^3/uL (130-450); RED BLOOD COUNT 3.33 10^6/uL (4.20-5.40); RED CELL DISTRIBUTION WIDTH 14.6 % (12.0-15.0); WHITE BLOOD COUNT 10.2 x10^3/uL (4.8-10.8)
[2019-04-16 03:34] LABS: ABNORMAL LYMPHS % (MANUAL) 0 %
[2019-04-16 03:44] LABS: ALBUMIN 4.4 g/dL (3.2-5.5); ALBUMIN/GLOBULIN RATIO 1.7 (1.0-2.2); BILIRUBIN,TOTAL 1.6 mg/dL (0.2-1.0)
[2019-04-16 03:59] LABS: BAND NEUTROPHILS % (MANUAL) 3 %; DIFFERENTIAL COMMENT MANUAL DIFFERENTIAL; EOSINOPHILS # (MANUAL) 0.5 10^3/uL (0-0.7); LYMPHOCYTES # (MANUAL) 2.2 10^3/uL (1.5-3.5); LYMPHOCYTES % (MANUAL) 22 %; MONOCYTES # (MANUAL) 0.2 10^3/uL (0.0-1.0); PLATELET ESTIMATE, MANUAL NORMAL (130-450,000) (NORMAL); RBC MORPHOLOGY (MULTIPLE) NORMAL APPEARANCE (NORMAL)
[2019-04-16] MEDS ORDERED: metroNIDAZOLE 250 MG TABLET PO STA (04:34)
[2019-04-16 04:50] LABS: ABG HCO3 20.9 mmol/L (22.0-26.0); ABG OXYGEN SATURATION 99 % (94-98); ABG PCO2 26 mmHg (34-45); ABG PH 7.53 (7.35-7.45); ABG PO2 133 mmHg (80-100); ABG TCO2 21.7 MMOL/L (21.0-29.0); ALLEN TEST POSITIVE
[2019-04-16 05:47] VITALS: BP 162/74
== END 2019-04-16 06:00 | disposition home or self-care (01) ==
LOC: ED 01:23
DX: N76.0 Acute vaginitis (principal); T50.991A Poisoning by other drugs, medicaments and biological substances, accidental (unintentional), initial encounter; D74.8 Other methemoglobinemias; F03.90 Unspecified dementia, unspecified severity, without behavioral disturbance, psychotic disturbance, mood disturbance, and anxiety
CPT/HCPCS: 36415; 36600; 80053; 81001; 82803; 83690; 84484; 85025; 87086; 87210; 87220; 99283; 99284; A9270; 81003

== ENCOUNTER 2019-04-18 11:25 | Emergency (ER) | payer BC ==
[2019-04-18] MEDS ORDERED: ACETAMINOPHEN 325 MG TABLET PO STA (13:21)
--- NOTE | 2019-04-18 13:58 | ED Physician Documentation ---
History of Present Illness - Stated complaint Stated Complaint: FEMALE - Chief complaint Chief Complaint: General - History obtained from History obtained from: Patient - History of Present Illness Timing: How many days ago (several) Pain level max: 4 Pain level now: 4 - Additonal information Additional information: 88-year-old female presents to the emergency department stating that she has had vaginal itching and burning for the past several days. She was treated for UTI and then placed on Flagyl for a yeast infection. She states that she feels like she is not improving. No fevers. No vomiting. Nothing makes it better or worse. 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 : None Psych: None Musculoskeletal: None - Past Surgical History Past Surgical History: Yes /CAMPUS RE[employer]UITING INTERNSHIP: Hysterectomy - Present Medications Home Medications: Ambulatory Orders Medication Instructions Recorded Confirmed Phenazopyridine HCl [Pyridium] 100 mg PO TID PRN #30 tablet 04/05/19 Sulfamethox/Trimeth 800/160 1 each PO BID #14 tablet 04/05/19 [Bactrim Ds 800/160] Metronidazole 500 mg PO BID #14 tablet 04/16/19 Miconazole Nitrate [Miconazole 7] 45 gm VG DAILY #7 cream.appl 04/18/19 - Allergies Allergies/Adverse Reactions: Allergies Allergy/AdvReac Type Severity Reaction Status Date / Time bacitracin Allergy Unknown Verified 04/18/19 17:57 [From Neosporin ([id number])] bacitracin zinc * Allergy Unknown Verified 04/18/19 17:57 [From Neosporin ([id number])] Cephalosporins Allergy Unknown Verified 04/18/19 17:57 naproxen [From Naprosyn] Allergy Unknown Verified 04/18/19 17:57 neomycin sulfate * Allergy Unknown Verified 04/18/19 17:57 [From Neosporin ([id number])] Penicillins Allergy Unknown Verified 04/18/19 17:57 polymyxin B Allergy Unknown Verified 04/18/19 17:57 [From Neosporin ([id number])] shellfish derived Allergy Unknown Verified 04/18/19 17:57 beta-lactams Allergy Unknown Uncoded 04/18/19 17:57 chloretrimazole Allergy Unknown Uncoded 04/18/19 17:57 msg Allergy Unknown Uncoded 04/18/19 17:57 - Social History Does the pt smoke?: No Smoking Status: Never smoker Does the pt drink ETOH?: No Does the pt have substance abuse?: No - Immunizations Immunizations are current?: No Immunizations: TDAP >10years/unknown, Other immun not current PD ED PE NORMAL - Vitals Vital signs reviewed: Yes - General General: Alert and oriented X 3, No acute distress - HEENT HEENT: Moist mucous membranes - Neck Neck: Supple, no meningeal sign - Cardiac Cardiac: RRR - Respiratory Respiratory: No respiratory distress, Clear bilaterally - Abdomen Abdomen: Soft, Non tender, Non distended - Female Female : Mold Shifter present (RNCatherine), Other (Normal external exam) - Derm Derm: Warm and dry - Neuro Neuro: Alert and oriented X 3 - Psych Psych: Normal mood, Normal affect Results - Vitals Vitals: Vital Signs - 24 hr 04/18/19 04/18/19 11:30 14:05 Temperature 36.9 C Heart Rate 95 84 Respiratory 18 18 Rate Blood Pressure 166/64 H 144/74 H O2 Saturation 93 97 Oxygen O2 Source Room air - Labs Labs: Laboratory Tests 04/18/19 11:50 C. glabrata (PCR) NEGATIVE C. krusei (PCR) NEGATIVE Subha species DNA NEGATIVE T. vaginalis (PCR) NEGATIVE Bact Vaginosis (PCR) NEGATIVE PD MEDICAL DECISION MAKING - ED course Complexity details: reviewed old records, reviewed results, considered differential, d/w patient, d/w family ED course: Patient apparently being treated for yeast infection. Vaginitis panel was sent. We will trial her on miconazole cream to see if this improves her symptoms. We will follow-up with her doctor for further care. Possible estrogen deficiency as well? Patient and family counseled regarding signs and symptoms for which I believe and urgent re-evaluation would be necessary. Patient with good understanding of and agreement to plan and is comfortable going home at this time This document was made in part using voice recognition software. While efforts are made to proofread this document, sound alike and grammatical errors may occur. Departure - Departure Disposition: 01 Home, Self Care Clinical Impression: Bacterial vaginitis Condition: Good Instructions: ED Vaginosis Bacterial Follow-Up: Berta Alatorre ARNP, CNA PER DIEM-C [Primary Care Provider] - Within 1 week Prescriptions: Miconazole Nitrate [Miconazole 7] 45 gm VG DAILY #7 cream.appl Comments: We will try you on the miconazole nitrate and follow-up with your doctor for further care. Return if you worsen. Discharge Date/Time: 04/18/19 14:09
[2019-04-18 14:05] VITALS: BP 144/74
[2019-04-18 15:34] LABS: CANDIDA GROUP DNA NEGATIVE (NEGATIVE); CANDIDA KRUSEI DNA NEGATIVE (NEGATIVE); TRICHOMONAS VAGINALIS DNA NEGATIVE (NEGATIVE)
== END 2019-04-18 14:09 | disposition home or self-care (01) ==
LOC: ED 11:25
DX: N76.0 Acute vaginitis (principal)
CPT/HCPCS: 87481; 87661; 87801; 99283; 99284; A9270

== ENCOUNTER 2019-04-18 17:48 | Emergency (ER) | payer BC ==
--- NOTE | 2019-04-18 19:21 | ED Physician Documentation ---
History of Present Illness - Stated complaint Stated Complaint: FEMALE - Chief complaint Chief Complaint: General - History obtained from History obtained from: Patient - Additonal information Additional information: Patient is an 88-year-old female presenting with vaginal discomfort. Patient has been seen now for times in the ED for these complaints this month. This is the second visit today within a matter of a few hours. Patient does not remember being here earlier today and requires quite a bit of discussion regarding recent UTI treatment with antibiotics and now needing miconazole for possible yeast infection although testing was unremarkable earlier today when patient was evaluated. Patient denies any new symptoms such as fever, nausea, vomiting, abdominal pain, urinary changes, stool changes, vaginal bleeding. No other improving or worsening factors noted. Review of Systems Constitutional: denies: Fever GI: denies: Abdominal Pain, Nausea, Vomiting, Diarrhea : reports: Other (Vaginal pain). 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 : None Psych: None Musculoskeletal: None - Past Surgical History Past Surgical History: Yes /WALL TAPER HELPER: Hysterectomy - Present Medications Home Medications: Ambulatory Orders Medication Instructions Recorded Confirmed Phenazopyridine HCl [Pyridium] 100 mg PO TID PRN #30 tablet 04/05/19 Sulfamethox/Trimeth 800/160 1 each PO BID #14 tablet 04/05/19 [Bactrim Ds 800/160] Metronidazole 500 mg PO BID #14 tablet 04/16/19 Miconazole Nitrate [Miconazole 7] 45 gm VG DAILY #7 cream.appl 04/18/19 - Allergies Allergies/Adverse Reactions: Allergies Allergy/AdvReac Type Severity Reaction Status Date / Time bacitracin Allergy Unknown Verified 04/18/19 17:57 [From Neosporin ([id number])] bacitracin zinc * Allergy Unknown Verified 04/18/19 17:57 [From Neosporin ([id number])] Cephalosporins Allergy Unknown Verified 04/18/19 17:57 naproxen [From Naprosyn] Allergy Unknown Verified 04/18/19 17:57 neomycin sulfate * Allergy Unknown Verified 04/18/19 17:57 [From Neosporin ([id number])] Penicillins Allergy Unknown Verified 04/18/19 17:57 polymyxin B Allergy Unknown Verified 04/18/19 17:57 [From Neosporin ([id number])] shellfish derived Allergy Unknown Verified 04/18/19 17:57 beta-lactams Allergy Unknown Uncoded 04/18/19 17:57 chloretrimazole Allergy Unknown Uncoded 04/18/19 17:57 msg Allergy Unknown Uncoded 04/18/19 17:57 - Social History Does the pt smoke?: No Smoking Status: Never smoker Does the pt drink ETOH?: No Does the pt have substance abuse?: No - Immunizations Immunizations are current?: No Immunizations: TDAP >10years/unknown, Other immun not current PD ED PE NORMAL - Vitals Vital signs reviewed: Yes - General General: Well developed/nourished. No: No acute distress (Rocking back and forth, animated, anxious) - HEENT HEENT: Atraumatic, Moist mucous membranes - Neck Neck: Supple, no meningeal sign - Cardiac Cardiac: RRR, No murmur - Respiratory Respiratory: No respiratory distress, Clear bilaterally - Abdomen Abdomen: Normal bowel sounds, Soft, Non tender, Non distended - Female Female : Deferred - Derm Derm: Normal color, Warm and dry, No rash - Extremities Extremities: No tenderness to palpate - Neuro Neuro: No motor deficit, No sensory deficit - Psych Psych: Other (Anxious) Results - Vitals Vitals: Vital Signs - 24 hr 04/18/19 17:54 Temperature 36.8 C Heart Rate 100 Respiratory 18 Rate Blood Pressure 180/70 H O2 Saturation 95 Oxygen O2 Source Room air PD MEDICAL DECISION MAKING - ED course Complexity details: reviewed old records, reviewed results, considered differential, d/w patient ED course: Patient has been seen for the same complaints several times this month and found to have a UTI that was treated with antibiotics. Patient was then seen in the past several hours in the ED and determined to possibly have a vaginal yeast infection and prescribed miconazole cream. Wet prep upon review returned unremarkable. Do not feel that patient is at high risk for intra-abdominal pathology, ovarian or other pelvic pathology that require invasive testing, imaging, or other medications at this time. Patient denies discharge or bleeding or other complication. Patient does report putting an ice cube of her vagina and was advised to not place anything into the vagina other than medication as instructed. Feel the patient can discharge home. Again emphasized her previous visits, what has been tested and done, medication usage, the need to allow for time and medications to work, as well as return precautions and need for follow-up. Departure - Departure Disposition: 01 Home, Self Care Clinical Impression: Vaginal pain, Vaginal irritation Condition: Good Follow-Up: your,doctor [Other] Comments: Please continue home medications as previously recommended. Please use cream as prescribed. Likely, this will take several days for your symptoms to improve or resolve. May also apply cool compresses or use ibuprofen/Tylenol as needed. Please follow-up with your primary care physician or [facility] [employer] SAL[employer] CONSULTANT in next 2 to 3 days. Return to ED sooner if experience worsening symptoms or have other concerns.
[2019-04-18 19:37] VITALS: BP 162/66
== END 2019-04-18 19:50 | disposition home or self-care (01) ==
LOC: ED 17:48
DX: N89.9 Noninflammatory disorder of vagina, unspecified (principal)

== ENCOUNTER 2019-04-26 14:34 | Emergency (ER) | payer BC ==
--- NOTE | 2019-04-26 15:30 | ED Physician Documentation ---
PD HPI FEMALE - Stated complaint Stated Complaint: FEMALE - Chief complaint Chief Complaint: UTI - History obtained from History obtained from: Patient - History of Present Illness Timing - onset: Other (She has been several times this month for vaginal complaints. Had UTI, grew proteus, tx with bactrim. Followed by vaginal infection and started metronidazole, followed by miconazole. Got better after fluconazole, not with recurrence. 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 : None Psych: None Musculoskeletal: None - Past Surgical History Past Surgical History: Yes /CIGAR MAKER: Hysterectomy - Present Medications Home Medications: Ambulatory Orders Medication Instructions Recorded Confirmed Phenazopyridine HCl [Pyridium] 100 mg PO TID PRN #30 tablet 04/05/19 Sulfamethox/Trimeth 800/160 1 each PO BID #14 tablet 04/05/19 [Bactrim Ds 800/160] Metronidazole 500 mg PO BID #14 tablet 04/16/19 Miconazole Nitrate [Miconazole 7] 45 gm VG DAILY #7 cream.appl 04/18/19 Ciprofloxacin [Cipro] 250 mg PO Q12H #10 tablet 04/26/19 - Allergies Allergies/Adverse Reactions: Allergies Allergy/AdvReac Type Severity Reaction Status Date / Time bacitracin Allergy Unknown Verified 04/26/19 14:53 [From Neosporin ([id number])] bacitracin zinc * Allergy Unknown Verified 04/26/19 14:53 [From Neosporin ([id number])] Cephalosporins Allergy Unknown Verified 04/26/19 14:53 naproxen [From Naprosyn] Allergy Unknown Verified 04/26/19 14:53 neomycin sulfate * Allergy Unknown Verified 04/26/19 14:53 [From Neosporin ([id number]-[id number])] Penicillins Allergy Unknown Verified 04/26/19 14:53 polymyxin B Allergy Unknown Verified 04/26/19 14:53 [From Neosporin ([id number])] shellfish derived Allergy Unknown Verified 04/26/19 14:53 beta-lactams Allergy Unknown Uncoded 04/26/19 14:53 chloretrimazole Allergy Unknown Uncoded 04/26/19 14:53 msg Allergy Unknown Uncoded 04/26/19 14:53 - Social History Does the pt smoke?: No Smoking Status: Never smoker Does the pt drink ETOH?: No Does the pt have substance abuse?: No - Immunizations Immunizations are current?: No Immunizations: TDAP >10years/unknown, Other immun not current - POLST Patient has POLST: No PD ED PE NORMAL - Vitals Vital signs reviewed: Yes - General General: No acute distress, Other (Somehwat confused, family at bedside, made it clear that d/t dementia she should not drive anymore) - Cardiac Cardiac: RRR, No murmur - Respiratory Respiratory: No respiratory distress, Clear bilaterally - Abdomen Abdomen: Soft, Non tender - Back Back: No CVA TTP - Neuro Neuro: Normal speech Eye Opening: Spontaneous Motor: Obeys Commands Verbal: Confused GCS Score: 14 Results - Vitals Vitals: Vital Signs - 24 hr 04/26/19 14:48 Temperature 36.9 C Heart Rate 75 Respiratory 18 Rate Blood Pressure 131/61 H O2 Saturation 97 Oxygen O2 Source Room air - Labs Labs: Laboratory Tests 04/26/19 15:40 Urine Color YELLOW Urine Clarity HAZY Urine pH 6.0 Ur Specific [place] 1.020 Urine Protein 30 H Urine Glucose (UA) NEGATIVE Urine Ketones 15 H Urine Occult Blood MODERATE H Urine Nitrite NEGATIVE Urine Bilirubin NEGATIVE Urine Urobilinogen 0.2 (NORMAL) Ur Leukocyte Esterase LARGE H Urine RBC 6-10 H Urine WBC >25 H Ur Squamous Epith Cells NONE SEEN Urine Bacteria Moderate H Ur Microscopic Review INDICATED Urine Culture Comments INDICATED Departure - Departure Disposition: 01 Home, Self Care Clinical Impression: Cystitis Condition: Good Record reviewed to determine appropriate education?: Yes Instructions: ED Infec Bladder Female Ch Prescriptions: Ciprofloxacin [Cipro] 250 mg PO Q12H #10 tablet Comments: We will culture your urine, the results should be done in 48-72 hours. If an antibiotic change is necessary we will call you. Return if worse in the meantime, especially if you develop increasing flank pain, fevers, or cannot keep down the medication. Call your doctor to arrange a follow-up appointment, make the next available appointment. In the interim, return anytime if worse or if new symptoms develop.
[2019-04-26 15:55] LABS: BILIRUBIN,URINE NEGATIVE (NEGATIVE); GLUCOSE, URINE (UA) NEGATIVE (NEGATIVE); KETONES,URINE (UA) 15 mg/dL (NEGATIVE); LEUKOCYTE ESTERASE, URINE LARGE (NEGATIVE); NITRITE,URINE NEGATIVE (NEGATIVE); OCCULT BLOOD,URINE MODERATE (NEGATIVE); PROTEIN,URINE 30 mg/dL (NEGATIVE); UROBILINOGEN,URINE 0.2 (NORMAL) E.U./dL (NORMAL)
[2019-04-26 16:01] LABS: CLARITY,URINE HAZY (CLEAR)
[2019-04-26 16:47] LABS: BACTERIA,URINE Moderate /HPF (None Seen)
[2019-04-26 16:48] LABS: SQUAMOUS EPITHELIAL CELL,UR NONE SEEN (<= Few)
[2019-04-26 17:00] VITALS: BP 132/83
== END 2019-04-26 17:00 | disposition home or self-care (01) ==
LOC: ED 14:34
DX: N30.90 Cystitis, unspecified without hematuria (principal); F03.90 Unspecified dementia, unspecified severity, without behavioral disturbance, psychotic disturbance, mood disturbance, and anxiety
CPT/HCPCS: 81001; 81003; 87077; 87086; 87181; 99283; 99284

== ENCOUNTER 2019-04-29 | Outpatient (CLI) | payer BC | END 2019-04-29 23:59 | disposition home or self-care (01) | DX: N76.2 Acute vulvitis (principal); B37.9 Candidiasis, unspecified | CPT/HCPCS: 87491; 87591; 87661; 87801 ==

== ENCOUNTER 2020-04-08 07:00 | Outpatient (CLI) | payer BC | END 2020-04-08 23:59 | disposition home or self-care (01) | LOC: LAB.R 07:00 | PROVIDERS: ATTEND Emergency Medicine | DX: L72.3 Sebaceous cyst (principal); B99.9 Unspecified infectious disease | CPT/HCPCS: 81599; 87070 ==

== ENCOUNTER 2021-01-29 08:00 | Outpatient (CLI) | payer BC ==
[2021-01-29 15:47] LABS: BILIRUBIN,URINE NEGATIVE (NEGATIVE); GLUCOSE, URINE (UA) NEGATIVE (NEGATIVE); KETONES,URINE (UA) NEGATIVE (NEGATIVE); LEUKOCYTE ESTERASE, URINE SMALL (NEGATIVE); NITRITE,URINE NEGATIVE (NEGATIVE); OCCULT BLOOD,URINE SMALL (NEGATIVE); PROTEIN,URINE TRACE mg/dL (NEGATIVE); UROBILINOGEN,URINE 0.2 (NORMAL) E.U./dL (NORMAL)
[2021-01-29 15:50] LABS: CLARITY,URINE HAZY (CLEAR)
[2021-01-29 15:58] LABS: BACTERIA,URINE Moderate /HPF (None Seen); SQUAMOUS EPITHELIAL CELL,UR RARE Squamous (<= Few)
== END 2021-01-29 23:59 | disposition home or self-care (01) ==
LOC: LAB.R 08:00
PROVIDERS: ATTEND Emergency Medicine
DX: R30.0 Dysuria (principal)
CPT/HCPCS: 81001; 87086

== ENCOUNTER 2022-02-12 10:15 | Outpatient (CLI) | payer BC ==
--- NOTE | 2022-02-12 11:44 | XRAY Report ---
PROCEDURE: Knee 4 View BILAT INDICATIONS: BILAT KNEE PAIN TECHNIQUE: 4 views of the and left knee(s) were acquired. COMPARISON: None. FINDINGS: Bones: 4 views of both knees were performed. There are tricompartmental degenerative changes of both knees with tricompartmental osteophytes. Small suprapatellar joint effusions are seen bilaterally. Jeremías th legs demonstrate atherosclerotic calcifications in the superficial femoral arteries. Both knees golden ve severe medial joint space narrowing. Soft tissues: No joint effusion. No suspicious soft tissue calcifications. IMPRESSION: Line 1. 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 2. Small suprapatellar joint effusions. 3. Vascular calcifications. Reviewed by: Gera Staley on 02/12/2022 11:42 AM PDT Approved by: Gera Staley on 02/12/2022 11:42 AM PDT Station ID: [id number]
== END 2022-02-12 23:59 | disposition home or self-care (01) ==
LOC: DI.WOS 10:15
PROVIDERS: ATTEND Orthopaedic Surgery
DX: M17.0 Bilateral primary osteoarthritis of knee (principal); M25.461 Effusion, right knee; M25.462 Effusion, left knee; I70.203 Unspecified atherosclerosis of native arteries of extremities, bilateral legs